=== PATIENT | female | born 1935 | race Caucasian/White ===

== ENCOUNTER → 2021-05-07 | Outpatient (CLI) | payer OTHER ==
[~2021-05-07] MED LIST: ATORVASTATIN CA20 MG PO; BETAPACE120 MG PO; COZAAR100 MG PO; DILTIAZEM 24HR120 M1 PO; HYDROCHLOROTHIA25 MG PO; ISOSORBIDE MONO30 MG PO; K-DUR TAB 20 M20 MEQ PO; LASIX40 MG PO; LIPITOR TAB 1010 MG PO; PRADAXA75 MG PO
== END ==
LOC: HEART 5 09:53
DX: I48.91 Unspecified atrial fibrillation (principal); R06.02 Shortness of breath; I08.1 Rheumatic disorders of both mitral and tricuspid valves; I70.0 Atherosclerosis of aorta; I27.20 Pulmonary hypertension, unspecified
CPT/HCPCS: 93306

== ENCOUNTER 2021-06-07 15:08 | Inpatient (IN) | payer OTHER ==
[~2021-06-07] VITALS: Ht 162.6 cm; Wt 100.9 kg
[2021-06-07 16:19] LABS: HEMOGLOBIN 12.8 gm/dl (12.3-15.3); RED BLOOD COUNT 4.54 M/UL (4.00-5.10); WHITE BLOOD COUNT 7.3 K/UL (4.5-11.0)
[2021-06-07 16:50] LABS: BUN/CREATININE RATIO 21 (0-10)
[2021-06-07] MEDS ORDERED: BETAPACE120 MG PO (20:36)
[2021-06-07] MEDS ORDERED: DILTIAZEM 24HR120 M1 PO (20:37)
[2021-06-07] MEDS ORDERED: LASIX40 MG PO (20:37)
[2021-06-07] MEDS ORDERED: ISOSORBIDE MONO30 MG PO (20:38)
[2021-06-07] MEDS ORDERED: PRADAXA75 MG PO (20:38)
[2021-06-07] MEDS ORDERED: HYDROCHLOROTHIA25 MG PO (20:39)
[2021-06-07] MEDS ORDERED: COZAAR100 MG PO (20:40)
[2021-06-07] MEDS ORDERED: K-DUR TAB 20 M20 MEQ PO (20:40)
[2021-06-07] MEDS ORDERED: LIPITOR TAB 1010 MG PO (20:41)
[2021-06-08 02:32] LABS: HEMOGLOBIN 13.2 gm/dl (12.3-15.3); RED BLOOD COUNT 4.69 M/UL (4.00-5.10); WHITE BLOOD COUNT 8.2 K/UL (4.5-11.0)
[2021-06-08 03:07] LABS: BUN/CREATININE RATIO 23 (0-10)
[2021-06-09 05:09] LABS: HEMOGLOBIN 12.8 gm/dl (12.3-15.3); RED BLOOD COUNT 4.46 M/UL (4.00-5.10); WHITE BLOOD COUNT 8.1 K/UL (4.5-11.0)
[2021-06-09 05:31] LABS: BUN/CREATININE RATIO 23 (0-10)
[2021-06-10 03:49] LABS: HEMOGLOBIN 13.3 gm/dl (12.3-15.3); RED BLOOD COUNT 4.59 M/UL (4.00-5.10); WHITE BLOOD COUNT 6.9 K/UL (4.5-11.0)
[2021-06-10 04:32] LABS: BUN/CREATININE RATIO 24 (0-10)
--- NOTE | 2021-06-10 11:00 | NUR ---
WHEN PATIENT RETURNED TO FLOOR, RN NOTED PATIENT TO HAVE TREMOR NOTED TO RIGHT HAND. DR. LUIS CHENEY.
--- NOTE | 2021-06-10 12:30 | NUR ---
NO TREMOR NOTED TO PATIENT'S RIGHT HAND AT THIS TIME.
[2021-06-10] MEDS ORDERED: ISOSORBIDE MONO30 MG PO (15:47)
--- NOTE | 2021-06-10 15:59 | NUR ---
RN CONTACTED DR. SMITH ABOUT PATIENT'S DISCHARGE TODAY. MD STATED PATIENT COULD BE DISCHARGED TODAY FROM HIS STANDPOINT. RN NOTIFIED DR. NIEVES.
[2021-06-10] MEDS ORDERED: ATORVASTATIN CA20 MG PO (16:13)
== END 2021-06-10 19:03 | disposition home or self-care (01) | DRG 286 ==
LOC: ER1 15:08 → CDU 17:59 → MED SURG 4 17:59
PROVIDERS: Physician Assistant; ADMIT Internal Medicine
PROC: 4A023N7 Measurement of Cardiac Sampling and Pressure, Left Heart, Percutaneous Approach (ICD-10-PCS; principal; 2021-06-10)
PROC: B2111ZZ Fluoroscopy of Multiple Coronary Arteries using Low Osmolar Contrast (ICD-10-PCS; 2021-06-10)
DX: R07.89 Other chest pain (principal); I50.23 Acute on chronic systolic (congestive) heart failure; I42.9 Cardiomyopathy, unspecified; I48.0 Paroxysmal atrial fibrillation; I11.0 Hypertensive heart disease with heart failure; I25.10 Atherosclerotic heart disease of native coronary artery without angina pectoris; I48.91 Unspecified atrial fibrillation; I27.20 Pulmonary hypertension, unspecified; G47.33 Obstructive sleep apnea (adult) (pediatric); I45.81 Long QT syndrome; M19.90 Unspecified osteoarthritis, unspecified site; E78.5 Hyperlipidemia, unspecified; E66.9 Obesity, unspecified; I08.3 Combined rheumatic disorders of mitral, aortic and tricuspid valves; Z96.659 Presence of unspecified artificial knee joint; Z90.10 Acquired absence of unspecified breast and nipple; Z98.890 Other specified postprocedural states; Z90.710 Acquired absence of both cervix and uterus; Z90.49 Acquired absence of other specified parts of digestive tract; Z88.0 Allergy status to penicillin; Z91.041 Radiographic dye allergy status; Z82.49 Family history of ischemic heart disease and other diseases of the circulatory system; Z88.8 Allergy status to other drugs, medicaments and biological substances
CPT/HCPCS: 36415; 36600; 71045; 71046; 78452; 80048; 80053; 82550; 82553; 82803; 83735; 83874; 83880; 84484; 85025; 85027; 93005; 93017; 94760; 96376; 99152; 99153; 99285; A9502; C1769; C1894; G0378; J1644; J1940; J2250; J2785; J3010; J7040; Q9967; U0002

== ENCOUNTER → 2021-10-22 | Outpatient (CLI) | payer OTHER | LOC: HEART 5 14:30 | DX: I48.0 Paroxysmal atrial fibrillation (principal); R00.2 Palpitations ==

== ENCOUNTER → 2021-12-17 | Outpatient (CLI) | payer OTHER | LOC: HEART 5 08:49 | DX: R06.02 Shortness of breath (principal) | CPT/HCPCS: 94010; 94729 ==

== ENCOUNTER 2022-01-01 23:18 | Observation (INO) | payer OTHER ==
[~2022-01-01] VITALS: Ht 162.6 cm; Wt 103.1 kg
[~2022-01-01 23:18] MED LIST changes: -BETAPACE120 MG PO
[2022-01-02 00:33] LABS: HEMOGLOBIN 12.8 gm/dl (12.3-15.3); RED BLOOD COUNT 4.48 M/UL (4.00-5.10); WHITE BLOOD COUNT 9.2 K/UL (4.5-11.0)
[2022-01-02 00:59] LABS: BUN/CREATININE RATIO 26 (0-10)
[2022-01-02 07:33] LABS: BUN/CREATININE RATIO 20 (0-10)
[2022-01-02] MEDS ORDERED: BETAPACE80 MG PO (11:07)
[2022-01-02] MEDS ORDERED: MULTIVITAMIN1 EACH PO (11:09)
[2022-01-02] MEDS ORDERED: BETAPACE120 MG PO (20:36)
--- NOTE | 2022-01-03 09:46 | NUR ---
AT 0940 AM REPORT CALLED TO OSIEL AT [facility].
== END 2022-01-04 16:20 | disposition home or self-care (01) ==
LOC: ER1 23:18 → CDU 01-02 04:56 → PROG CARE 01-02 04:56
PROVIDERS: Internal Medicine; Student in an Organized Health Care Education/Training Program; ADMIT Internal Medicine
DX: I16.1 Hypertensive emergency (principal); I11.0 Hypertensive heart disease with heart failure; I50.23 Acute on chronic systolic (congestive) heart failure; I48.0 Paroxysmal atrial fibrillation; I42.8 Other cardiomyopathies; R77.8 Other specified abnormalities of plasma proteins; I25.10 Atherosclerotic heart disease of native coronary artery without angina pectoris; E66.01 Morbid (severe) obesity due to excess calories; R00.1 Bradycardia, unspecified; R00.8 Other abnormalities of heart beat; R07.89 Other chest pain; E78.5 Hyperlipidemia, unspecified; Z98.61 Coronary angioplasty status; Z90.49 Acquired absence of other specified parts of digestive tract; Z90.10 Acquired absence of unspecified breast and nipple; Z88.0 Allergy status to penicillin; Z91.041 Radiographic dye allergy status; Z88.5 Allergy status to narcotic agent; Z20.822 Contact with and (suspected) exposure to COVID-19
CPT/HCPCS: 36415; 71045; 80048; 82550; 82553; 83735; 83880; 84484; 85025; 93005; 96374; 96375; 96376; 99284; G0378; J0360; J1940; J2405; U0002